=== PATIENT | female | born 1995 | race Caucasian/White ===

== ENCOUNTER 2023-05-09 11:00 | Outpatient (OUT) | payer OTHER, SELFPAY ==
--- NOTE | 2023-05-09 11:03 | US_ITS ---
The [address] [address] Patient Name: DARLEEN-------- Maggi HINTON MRN: [id number] date: 1995 Sex: F Assigned Patient Location: US Current Patient Location: US Accession/Order Number: [id number] Exam Date: 05/09/2023 11:20 Report Date: 05/09/2023 16:46 At the request of: ARCELIA GAMEZ Procedure: US pelvis w/ transvaginal EXAM: US pelvis w/ transvaginal INDICATION: Pelvic Pain In Female R10.2, Menorrhagia N92.0 COMPARISON: Pelvic ultrasound 05/15/2016 TECHNIQUE: Transabdominal and transvaginal ultrasound with grayscale, color Doppler and spectral Doppler imaging. FINDINGS: Uterus:9.4 x 5.6 x 4.3 cm Grossly normal myometrial echotexture. Endometrium:17.9 mm Right ovary: 3.0 x 2.1 x 1.7 cm. Left ovary: 3.2 x 2.4 x 2.6cm. Normal color Doppler and spectral tracing to both ovaries No free fluid in the cul-de-sac. US/US pelvis w/ transvaginal IMPRESSION: 1. Thickened endometrium. No sonographic findings of focal endometrial mass. Electronically authenticated by: CHUCKIE HERNANDEZ Date: 05/09/2023 16:46
== END 2023-05-09 11:01 | disposition home or self-care (01) ==
LOC: US 11:00
PROVIDERS: PCP Internal Medicine; Visit Provider Obstetrics & Gynecology
DX: R10.9 Unspecified abdominal pain (principal); N92.0 Excessive and frequent menstruation with regular cycle; R93.89 Abnormal findings on diagnostic imaging of other specified body structures
CPT/HCPCS: 76830; 76856

== ENCOUNTER 2023-05-23 11:10 | Outpatient (OUT) | payer OTHER, SELFPAY ==
--- NOTE | 2023-05-23 11:43 | ECG_ITS ---
[facility] Test Date: 2023-05-23 Pat Name: DARLEEN HINTON Department: Room: - Gender: Female Car [employer]: : 1995 Requested By: ARCELIA GAMEZ Order Number: [id number] Reading MD: NORM ORTIZ Measurements Intervals [place] Rate: 61 P: 11 DC: 161 QRS: 38 QRSD: 85 T: 20 QT: 391 QTc: 395 Interpretive Statements SINUS RHYTHM No previous ECG available for comparison Electronically Signed On 05-24-2023 7:02:55 EST by NORM ORTIZ
== END 2023-05-23 11:11 | disposition home or self-care (01) ==
PROVIDERS: PCP Internal Medicine; Visit Provider Obstetrics & Gynecology
DX: Z01.810 Encounter for preprocedural cardiovascular examination (principal); N92.0 Excessive and frequent menstruation with regular cycle; N93.9 Abnormal uterine and vaginal bleeding, unspecified; R10.2 Pelvic and perineal pain
CPT/HCPCS: 93005

== ENCOUNTER 2023-05-24 06:18 | Day surgery (SDC) | payer OTHER, SELFPAY ==
[2023-05-23 11:45] VITALS: BP 117/80; PULSE 78; RESP 18; TEMP 36.3; O2SAT 99; BMI 35.6
[2023-05-24 06:28] LABS: Basophils Percent Auto 0.6 % (0.2-2.0); Eosinophils Absolute Auto 0.1 10^3/uL (0.0-0.7); Eosinophils Percent Auto 1.2 % (0.9-7.0); Hemoglobin 12.8 g/dL (12.0-16.0); Lymphocytes Absolute Auto 2.7 10^3/uL (1.2-3.8); Lymphocytes Percent Auto 41.3 % (20.5-60.0); Mean Corpuscular HGB Conc 32.8 g/dL (29.9-35.2); Mean Corpuscular Hemoglobin 28.8 pg (26.7-34.0); Mean Corpuscular Volume 87.8 fL (81.0-99.0); Mean Platelet Volume 10.7 fL (9.5-13.5); Monocytes Absolute Auto 0.5 10^3/uL (0.3-0.8); Monocytes Percent Auto 8.2 % (1.7-12.0); Neutrophils Absolute Auto 3.1 10^3/uL (1.4-6.5); Neutrophils Percent Auto 48.7 % (43.0-75.0); Platelet Count 287 10^3/uL (150-450); Red Blood Count 4.44 10^6/uL (4.20-5.40); Red Cell Distribution Width 12.1 % (11.0-15.0); White Blood Count 6.5 10^3/uL (4.0-11.0)
[2023-05-24 06:43] VITALS: BP 125/77; PULSE 72; RESP 16; TEMP 36.2; O2SAT 98
[2023-05-24 06:48] LABS: Glucometer 105 mg/dL (74-106)
[2023-05-24 06:51] LABS: HCG Quantitative <1 mIU/mL
[2023-05-24] MEDS: LACTATED RINGER'S SOLUTION 1,000 ML 50 ML IV (06:54)
--- NOTE | 2023-05-24 08:07 | PM.ONB ---
Brief Operative Note Date of procedure: 05/24/23 Pre-op diagnosis: menorrhagia Post-op diagnosis: same as pre-op Procedure: NAME OF PROCEDURE: [ ] Liudmila endometrial ablation with hysteroscopy. PROCEDURE: The patient was taken back to the OR where she was prepped and draped in the normal sterile fashion after being placed in the dorsal lithotomy position, after being placed under general anesthesia without difficulty.? A weighted speculum was placed into the vagina. The anterior lip was grasped with a single tooth tenaculum. The patient was then sounded to approximated 8cm. The patient?s cervix was gently dilated using hegardilators. The hysteroscope was passed through the cervix into the uterus where both ostia were seen. No gross evidence of polyps, fibroids or malignancy. The cervical length was noted to be 4 cm. The total cavity length is 4cm.? The Liudmila ablation apparatus was set to approximately 4cm in length. This was placed through the cervix and into the uterus. After the seal was tested, at that time the total ablation of 120 seconds was performed with the Liudmila withoutdifficulty. All instruments were removed from the vagina. Excellent hemostasis noted.? Sponge and lap count correct times 2.? Patient taken to recovery in stable condition. Anesthesia: GETA Surgeon: Phill Mitchell Estimated blood loss (mL): 5 Pathology: none sent Condition: stable Disposition: PACU
[2023-05-24 08:15] VITALS: BP 114/65; PULSE 66; RESP 16; TEMP 36.1; O2SAT 98
[2023-05-24 08:30] VITALS: BP 110/62; PULSE 61; RESP 16; O2SAT 100
[2023-05-24 08:45] VITALS: BP 117/75; PULSE 64; RESP 14; O2SAT 98
[2023-05-24 09:10] VITALS: BP 118/73; PULSE 62; RESP 16; O2SAT 96
== END 2023-05-24 09:10 | disposition home or self-care (01) ==
PROVIDERS: PCP Internal Medicine; Visit Provider Obstetrics & Gynecology
PROC: (CPT 58563; principal; 2023-05-24 07:30)
DX: N92.0 Excessive and frequent menstruation with regular cycle (principal); N93.9 Abnormal uterine and vaginal bleeding, unspecified; R10.2 Pelvic and perineal pain; Z79.84 Long term (current) use of oral hypoglycemic drugs; F17.210 Nicotine dependence, cigarettes, uncomplicated; E66.9 Obesity, unspecified; Z68.33 Body mass index [BMI] 33.0-33.9, adult
CPT/HCPCS: 58563; 36415; 82948; 84702; 85025; J2704

== ENCOUNTER 2024-04-06 21:59 | Outpatient (REF) | payer OTHER, SELFPAY ==
--- OUTSIDE RECORDS SUMMARY | 2024-04-06 22:03 | XMS_ITS | CCD ---
Author Organization [facility] Care Team Providers Care Catalyst Manufacturing Operator Name Role Phone KELLEY EDUARDO Attending Unavailable KARASIK, KELLEY Consulting Unavailable REQUEST, NONE LISTED Primary Care Unavaila ble KARASIK, KELLEY Admitting Unavailable KARASIK, KELLEY Attending Unavailable KARASIK, KELLEY Consulting Unavailable REQUEST, NONE LISTED Primary Care Unavaila ble KARASIK, KELLEY Admitting Unavailable KARASIK, KELLEY Attending Unavailable REQUEST, NONE LISTED Primary Care Unavaila ble KARASIK, KELLEY Consulting Unavailable KARASIK, KELLEY Admitting Unavailable KARASIK, KELLEY Attending Unavailable REQUEST, NONE LISTED Primary Care Unavaila ble KARASIK, KELLEY Consulting Unavailable KARASIK, KELLEY Admitting Unavailable KARASIK, KELLEY Procedure Practitioner Unavaila ble HOY ., DR BERRIOS Primary Care Unavailable KARASIK, KELLEY Attending Unavailable KARASIK, KELLEY Admitting Unavailable FAWWAYue, H Primary Care Unavailable KARASIK, KELLEY Attending Unavailable KARASIK, KELLEY Consulting Unavailable KARASIK, KELLEY Admitting Unavailable OK II, UZAIR Consulting Unavailable FILUTZE, MARCO Consulting Unavailable REQUEST, NONE LISTED Primary Care Unavaila ble KARASIK, KELLEY Attending Unavailable KARASIK, KELLEY Admitting Unavailable AICHHOLZ, VENEER CLIPPER HELPER MATILDE Admitting Unavailable REQUEST, NONE LISTED Primary Care Unavaila ble AICHHOLZ, VENEER CLIPPER HELPER MATILDE Attending Unavailable AICHHOLZ, VENEER CLIPPER HELPER MATILDE Consulting Unavailable KARASIK, KELLEY Attending Unavailable KARASIK, KELLEY Consulting Unavailable REQUEST, NONE LISTED Primary Care Unavaila ble KARASIK, KELLEY Admitting Unavailable NARENDRA JONES Attending Unavailable FAWSHAIKH COOL Attending Unavailable FAWSHAIKH COOL Attending Unavailable NARENDRA JONES Attending Unavailable OREN VALDEZ Attending DALJIT Maravilla Attending OREN Rosales Attending Unavailable Problems Active Problems Problem Classification Problem Date Documented Date Episodic/Chronic Abdominal pain (1 source) Pelvic and perineal pain; Translations: [PELVIC AND PERINEAL PAIN] Onset: 10-02-2022 Episodic Contraceptive and procreative management (4 sources) Encounter for sterilization; Translations: [ENCOUNTER FOR STERILIZATION] Onset: 09-24-2022 Episodic Menstrual disorders (1 source) Excessive and frequent menstruation with regular cycle; Translations: [EXCESS FREQ MENSTRUATION W/REG CYCL] Onset: 10-02-2022 Chronic Other nutritional; endocrine; and metabolic disorders (1 source) Obesity, unspecified; Translations: [OBESITY UNSPECIFIED] Onset: 10-02-2022 Chronic Other nutritional; endocrine; and metabolic disorders (1 source) Body mass index (BMI) 37.0-37.9, adult; Translations: [BODY MASS INDEX BMI 37.0-37.9 ADULT] Onset: 10-02-2022 Chronic Residual codes; unclassified (1 source) Family history of other diseases of the genitourinary system; Translations: [FAM HX OTH DZ GENITOURINARY SYSTEM] Onset: 10-02-2022 Episodic Screening and history of mental health and substance abuse codes (1 source) Personal history of nicotine dependence; Translations: [PERSONAL HISTORY OF NICOTINE DEPEND] Onset: 10-02-2022 Episodic Unclassified (1 source) ENDOMETRIO POST CUL DE SAC UNS DPTH; Translations: [ENDOMETRIO POST CUL DE SAC UNS DPTH] Onset: 10-02-2022 Unclassified (3 sources) CONTACT W/AND (SUSP) EXPOS COVID-19; Translations: [CONTACT W/AND (SUSP) EXPOS COVID-19] Onset: 01-16-2022 Viral infection (1 source) COVID-19; Translations: [COVID-19] Onset: 06-02-2022 Past or Other Problems Problem Classification Problem Date Documented Date Episodic/Chronic Diabetes mellitus without complication (4 sources) Other abnormal glucose; Translations: [OTHER ABNORMAL GLUCOSE] Onset: 11-04-2021 Episodic Immunizations and screening for infectious disease (1 source) Encounter for screening for infections with a predominantly sexual mode of transmission; Translations: [ENC SCREEN INFECTIONS SEXL TRANSMS] Onset: 12-21-2021 Episodic Other female genital disorders (4 sources) Other specified noninflammatory disorders of vagina; Translations: [OTH SPEC NONINFLAMMATORY D/O VAGINA] Onset: 05-09-2022 Episodic Other and delivery including normal (8 sources) Encounter for care and examination of lactating mother; Translations: [Encounter for supervision of normal , unspecified, third trimester] Onset: 01-12-2022 Episodic Other screening for suspected conditions (not mental disorders or infectious disease) (9 sources) Encounter for screening for malignant neoplasm of cervix; Translations: [Encounter for screening for Streptococcus B] Onset: 10-31-2021 Episodic Residual codes; unclassified (1 source) 39 weeks gestation of ; Translations: [39 WEEKS GESTATION OF ] Onset: 01-16-2022 Episodic Unclassified (1 source) CONTACT W/AND (SUSP) EXPOS COVID-19; Translations: [CONTACT W/AND (SUSP) EXPOS COVID-19] Onset: 05-29-2022 Results Test Name Value Interpretation Reference Range Facility URon 09-24-2022 , QUAL Negative Normal NEGATIVE [facility] Comment on above: Performed By: #### P REGU #### [facility] [address] [place] [address] Dr. Rodrigo Mendez Covid-19 PCR ([facility])on 05-09 SARS-CoV-2 (COVID-19) RNA SIRI+probe Ql (Unsp spec) Detected Critically abnormal NOT DETECTED [facility] Comment on above: Result Comment: This test is not yet approved or cleared by the [place] FDA. When there are no FDA-approved or cleared tests available, and other criteria are met, FDA can make tests available under an emergency access mechanism called an Emergency Use Authorization (EUA). The EUA for this test is supported by the Graduate Teaching Assistant of Health and Human Service's declaration that circumstances exist to justify the emergency use of in vitro diagnostics for the detection and/or diagnosis of the virus that causes COVID-19. This EUA will remain in effect for the duration of the COVID-19 declaration justifying emergency of IVDs, unless it is terminated or revoked by the FDA (after which the test may no longer be used). Performed By: #### G [id number] #### [facility] [address] [place] [address] Dr. Rodrigo Mendez PAP ACOG PANEL 2: 21 to 29on 05-17-2022 . . Normal [facility] Comment on above: Performed By: #### [id number] #### [facility] [address] [place] [address] Dr. Rodrigo Mendez Age Gdln ACOG Testing 23- [facility] Comment on above: Performed By: #### [id number] #### [facility] [address] [place] [address] Dr. Rodrigo Mendez DIAGNOSIS: Comment [facility] Comment on above: Result Comment: NEGA TIVE FOR INTRAEPITHELIAL LESION OR MALIGNANCY. Performed By: #### [id number] #### [facility] [address] [place] [address] Dr. Rodrigo Mendez Methodology: Comment [facility] Comment on above: Result Comment: This liquid based ThinPrep(R) pap test was screened with the use of an image guided system. Performed By: #### [id number] #### [facility] [address] [place] [address] Dr. Rodrigo Mendez Note: Comment [facility] Comment on above: Result Comment: The Pap smear is a screening test designed to aid in the detection of premalignant and malignant conditions of the uterine cervix. It is not a diagnostic procedure and should not be used as the sole means of detecting cervical cancer. Both false-positive and false-negative reports do occur. . Performed By: #### [id number] #### [facility] [address] [place] [address] Dr. Rodrigo Mendez Performed by: Comment Normal [facility] Comment on above: Result Comment: Debra Montelongo, Switchboard Installer (ASCP) Performed By: #### [id number] #### [facility] [address] [place] [address] Dr. Rodrigo Mendez Reflex Criteria: Comment [facility] Comment on above: Result Comment: The HPV DNA reflex criteria were not met with this specimen result therefore, no HPV testing was performed. . Performed By: #### [id number] #### [facility] [address] [place] [address] Dr. Rodrigo Mendez Specimen adequacy: Comment Normal [facility] Comment on above: Result Comment: Sati sfactory for evaluation. Endocervical and/or squamous metaplastic cells (endocervical component) are present. Performed By: #### [id number] #### [facility] [address] [place] [address] Dr. Rodrigo Mendez VAGINITIS/VAGINOSIS DNA PROB Hussain 05-12-2022 Esther species Negative Normal Negative [facility] Comment on above: Performed By: #### V AGINT #### [facility] [address] [place] [address] Dr. Rodrigo Mendez Gardnerella vaginalis Negative Normal Negative [facility] Comment on above: Performed By: #### V AGINT #### [facility] [address] [place] [address] Dr. Rodrigo Mendez Trichomonas vaginalis Negative Normal Negative [facility] Comment on above: Performed By: #### V AGINT #### [facility] [address] [place] [address] Dr. Rodrigo Mendez CBC AUTO DIFFon 01-13-2022 BASO # 0.0 103/ul Normal 0.0-0.[address] [facility] Comment on above: Performed By: #### C BC #### [facility] [address] [place] [address] Dr. Rodrigo Mendez Basophils/100 WBC (Bld) 0.4 % Normal 0.2-2.[address] [facility] Comment on above: Performed By: #### C BC #### [facility] [address] [place] [address] Dr. Rodrigo Mendez EO # 0.1 103/ul Normal 0.0-0.[address] [facility] Comment on above: Performed By: #### C BC #### [facility] [address] [place] [address] Dr. Rodrigo Mendez Eosinophils/100 WBC (Bld) 1.5 % Normal 0.9-7.[address] [facility] Comment on above: Performed By: #### C BC #### [facility] [address] [place] [address] Dr. Rodrigo Mendez Erythrocyte distribution width (RBC) [Ratio] 13.6 % Normal 11.0-15.[address] [facility] Comment on above: Performed By: #### C BC #### [facility] [address] [place] [address] Dr. Rodrigo Mendez Hematocrit (Bld) [Volume fraction] 33.6 % Critically low 36.0-48.[address] [facility] Comment on above: Performed By: #### C BC #### [facility] [address] [place] [address] Dr. Rodrigo Mendez Hemoglobin (Bld) [Mass/Vol] 11.0 g/dL Critically low 12.0-16.[address] [facility] Comment on above: Performed By: #### C BC #### [facility] [address] [place] [address] Dr. Rodrigo Mendez IG # 0.02 10e3/ul Normal 0.00-0.[address] [facility] Comment on above: Performed By: #### C BC #### [facility] [address] [place] [address] Dr. Rodrigo Mendez IG % 0.2 % Normal 0.0-0.[address] [facility] Comment on above: Performed By: #### C BC #### [facility] [address] [place] [address] Dr. Rodrigo Mendez LYMPH # 2.0 103/ul Normal 1.2-3.[address] [facility] Comment on above: Performed By: #### C BC #### [facility] [address] [place] [address] Dr. Rodrigo Mendez Lymphocytes/100 WBC (Bld) 21.5 % Normal 20.5-60.[address] [facility] Comment on above: Performed By: #### C BC #### [facility] [address] [place] [address] Dr. Rodrigo Mendez MANUAL DIFF REQ NO Normal [facility] Comment on above: Performed By: #### C BC #### [facility] [address] [place] [address] Dr. Rodrigo Mendez MCH (RBC) [Entitic mass] 28.9 pg Normal 26.7-34.[address] [facility] Comment on above: Performed By: #### C BC #### [facility] [address] [place] [address] Dr. Rodrigo Mendez MCHC (RBC) [Mass/Vol] 32.7 g/dL Normal 29.9-35.[address] [facility] Comment on above: Performed By: #### C BC #### [facility] [address] [place] [address] Dr. Rodrigo Mendez MCV (RBC) [Entitic vol] 88.4 fL Normal 81.0-99.[address] [facility] Comment on above: Performed By: #### C BC #### [facility] [address] [place] [address] Dr. Rodrigo Mendez MONO # 0.8 103/ul Normal 0.3-0.[address] [facility] Comment on above: Performed By: #### C BC #### [facility] [address] [place] [address] Dr. Rodrigo Mendez Monocytes/100 WBC (Bld) 8.4 % Normal 1.7-12.[address] [facility] Comment on above: Performed By: #### C BC #### [facility] [address] [place] [address] Dr. Rodrigo eMndez NEUT # 6.2 103/ul Normal 1.4-6.[address] [facility] Comment on above: Performed By: #### C BC #### [facility] [address] [place] [address] Dr. Rodrigo Mendez Neutrophils/100 WBC (Bld) 68.0 % Normal 43.0-75.[address] [facility] Comment on above: Performed By: #### C BC #### [facility] [address] [place] [address] Dr. Rodrigo Mendez Platelet mean volume (Bld) [Entitic vol] 12.6 fL Normal 9.5-13.[address] [facility] Comment on above: Performed By: #### C BC #### [facility] [address] [address] [address] Rodrigo Mendez PLT 142 103/ul Critically low 150-450 [facility] Comment on above: Performed By: #### C BC #### [facility] [address] [place] [address] Dr. Rodrigo Mendez RBC 3.80 106/ul Critically low 4.20-5.40 [facility] Comment on above: Performed By: #### C BC #### [facility] [address] [place] [address] Dr. Rodrigo Mendez WBC 9.1 103/ul Normal 4.0-11.[address] [facility] Comment on above: Performed By: #### C BC #### [facility] [address] [place] [address] Dr. Rodrigo Mendez CBC AUTO DIFFon 01-12-2022 BASO # 0.0 103/ul Normal 0.0-0.[address] [facility] Comment on above: Performed By: #### G LU1HR #### [facility] [address] [place] [address] Dr. Rodrigo Mendez Basophils/100 WBC (Bld) 0.2 % Normal 0.2-2.[address] [facility] Comment on above: Performed By: #### G LU1HR #### [facility] [address] [place] [address] Dr. Rodrigo Mendez EO # 0.1 103/ul Normal 0.0-0.[address] [facility] Comment on above: Performed By: #### G LU1HR #### [facility] [address] [place] [address] Dr. Rodrigo Mendez Eosinophils/100 WBC (Bld) 0.5 % Critically low 0.9-7.[address] [facility] Comment on above: Performed By: #### G LU1HR #### [facility] [address] [place] [address] Dr. Rodrigo Mendez Erythrocyte distribution width (RBC) [Ratio] 13.2 % Normal 11.0-15.[address] [facility] Comment on above: Performed By: #### G LU1HR #### [facility] [address] [place] [address] Dr. Rodrigo Mendez Hematocrit (Bld) [Volume fraction] 34.6 % Critically low 36.0-48.[address] [facility] Comment on above: Performed By: #### G LU1HR #### [facility] [address] [place] [address] Dr. Rodrigo Mendez Hemoglobin (Bld) [Mass/Vol] 11.6 g/dL Critically low 12.0-16.[address] [facility] Comment on above: Performed By: #### G LU1HR #### [facility] [address] [place] [address] Dr. Rodrigo Mendez IG # 0.03 10e3/ul Normal 0.00-0.[address] [facility] Comment on above: Performed By: #### G LU1HR #### [facility] [address] [place] [address] Dr. Rodrigo Mendez IG % 0.3 % Normal 0.0-0.[address] [facility] Comment on above: Performed By: #### G LU1HR #### [facility] [address] [place] [address] Dr. Rodrigo Mendez LYMPH # 2.4 103/ul Normal 1.2-3.[address] [facility] Comment on above: Performed By: #### G LU1HR #### [facility] [address] [place] [address] Dr. Rodrigo Mendez Lymphocytes/100 WBC (Bld) 21.0 % Normal 20.5-60.[address] [facility] Comment on above: Performed By: #### G LU1HR #### [facility] [address] [place] [address] Dr. Rodrigo Mendez MANUAL DIFF REQ NO Normal [facility] Comment on above: Performed By: #### G LU1HR #### [facility] [address] [place] [address] Dr. Rodrigo Mendez MCH (RBC) [Entitic mass] 28.6 pg Normal 26.7-34.[address] [facility] Comment on above: Performed By: #### G LU1HR #### [facility] [address] [address] [address] Rodrigo Mendez MCHC (RBC) [Mass/Vol] 33.5 g/dL Normal 29.9-35.[address] [facility] Comment on above: Performed By: #### G LU1HR #### [facility] [address] [place] [address] Dr. Rodrigo Mendez MCV (RBC) [Entitic vol] 85.4 fL Normal 81.0-99.[address] [facility] Comment on above: Performed By: #### G LU1HR #### [facility] [address] [place] [address] Dr. Rodrigo Mendez MONO # 0.8 103/ul Normal 0.3-0.[address] [facility] Comment on above: Performed By: #### G LU1HR #### [facility] [address] [place] [address] Dr. Rodrigo Mendez Monocytes/100 WBC (Bld) 7.2 % Normal 1.7-12.[address] [facility] Comment on above: Performed By: #### G LU1HR #### [facility] [address] [place] [address] Dr. Rodrigo Mendez NEUT # 7.9 103/ul Critically high 1.4-6.5 [facility] Comment on above: Performed By: #### G LU1HR #### [facility] [address] [place] [address] Dr. Rodrigo Mendez Neutrophils/100 WBC (Bld) 70.8 % Normal 43.0-75.[address] [facility] Comment on above: Performed By: #### G LU1HR #### [facility] [address] [place] [address] Dr. Rodrigo Mendez Platelet mean volume (Bld) [Entitic vol] 12.4 fL Normal 9.5-13.[address] [facility] Comment on above: Performed By: #### G LU1HR #### [facility] [address] [place] [address] Dr. Rodrigo Mendez PLT 175 103/ul Normal 150-450 [facility] Comment on above: Performed By: #### G LU1HR #### [facility] [address] [address] [address] Rodrigo Mendez RBC 4.05 106/ul Critically low 4.20-5.40 [facility] Comment on above: Performed By: #### G LU1HR #### [facility] [address] [address] [address] Rodrigo Mendez WBC 11.2 103/ul Critically high 4.0-11.0 [facility] Comment on above: Performed By: #### G LU1HR #### [facility] [address] [address] [address] Rodrigo Mendez Covid-19 PCR (CVDTB)on SARS-CoV-2 (COVID-19) RNA SIRI+probe Ql (Unsp spec) Not detected Normal NOT DETECTED [facility] Comment on above: Result Comment: When diagnostic testing is negative, the possibility of a false negative should be considered in the context of a patient's recent exposures and the presence of clinical signs and symptoms consistent with SARS-CoV-2. This test is not yet approved or cleared by the [place] FDA. When there are no FDA-approved or cleared tests available, and other criteria are met, FDA can make tests available under an emergency access mechanism called an Emergency Use Authorization (EUA). The EUA for this test is supported by the [place] of Health and Human Service's declaration that circumstances exist to justify the emergency use of in vitro diagnostics for the detection and/or diagnosis of the virus that causes COVID-19. This EUA will remain in effect for the duration of the COVID-19 declaration justifying emergency of IVDs, unless it is terminated or revoked by the FDA (after which the test may no longer be used). Performed By: #### C VDTBH #### [facility] [address] [place] [address] Dr. Rodrigo Mendez TYPE AND SCREENon 01-12-2022 TYPE AND SCREEN Negative Normal [facility] Comment on above: Performed By: #### G LU1HR #### [facility] [address] [place] [address] Dr. Rodrigo Mendez DRUG SCREEN RAPID (URINE)on 01-11-2022 AMP Negative Normal NEGATIVE [facility] Comment on above: Performed By: #### D RUGRPD #### [facility] [address] [place] [address] Dr. Rodrigo Mendez BAR Negative Normal NEGATIVE [facility] Comment on above: Performed By: #### D RUGRPD #### [facility] [address] [place] [address] Dr. Rodrigo Mendez BUP Negative Normal NEGATIVE [facility] Comment on above: Performed By: #### D RUGRPD #### [facility] [address] [place] [address] Dr. Rodrigo Mendez BZO Negative Normal NEGATIVE [facility] Comment on above: Performed By: #### D RUGRPD #### [facility] [address] [place] [address] Dr. Rodrigo Mendez RACHEL Negative Normal NEGATIVE [facility] Comment on above: Performed By: #### D RUGRPD #### [facility] [address] [place] [address] Dr. Rodrigo Mendez CUT-OFFS SEE BELOW Normal [facility] Comment on above: Result Comment: AMP (Amphetamine): 500ng/mL, BAR (Barbituates): 200 ng/mL, BZO (Benzodiazepines): 150 ng/mL, BUP (Buprenorphine): 10 ng/mL, RACHEL (Cocaine): 150 ng/mL, mAMP (Methamphetamine): 500 ng/mL, MTD (Methadone): 200 ng/mL, OPI (Opiates): 100 ng/mL, OXY (Oxycodone): 100 ng/mL, PCP (Phencyclidine): 25 ng/mL, PPX (Propoxyphene): 300 ng/mL, THC (Cannabinoids): 50 ng/mL, TCA (Trycyclic Antidepressants): 300 ng/mL Performed By: #### D RUGRPD #### [facility] [address] [place] [address] Dr. Rodrigo Mendez DRUG CUT HEADER DRUG CLASS TEST SYSTEM CUT-OFF CONCENTRATIONS ARE FOLLOWS: Normal [facility] Comment on above: Performed By: #### D RUGRPD #### [facility] [address] [place] [address] Dr. Rodrigo Mendez mAMP Negative Normal NEGATIVE [facility] Comment on above: Performed By: #### D RUGRPD #### [facility] [address] [place] [address] [address] Rodrigo Mendez MTD Negative Normal NEGATIVE [facility] Comment on above: Performed By: #### D RUGRPD #### [facility] [address] [place] [address] [address] Rodrigo Mendez OPI Negative Normal NEGATIVE [facility] Comment on above: Performed By: #### D RUGRPD #### [facility] [address] [place] [address] Dr. Rodrigo Mendez OXY Negative Normal NEGATIVE [facility] Comment on above: Performed By: #### D RUGRPD #### [facility] [address] [place] [address] Dr. Rodrigo Mendez PCP Negative Normal NEGATIVE [facility] Comment on above: Performed By: #### D RUGRPD #### [facility] [address] [place] [address] Dr. Rodrigo Mendez PPX Negative Normal NEGATIVE [facility] Comment on above: Performed By: #### D RUGRPD #### [facility] [address] [place] [address] Dr. Rodrigo Mendez TCA Negative Normal NEGATIVE [facility] Comment on above: Performed By: #### D RUGRPD #### [facility] [address] [place] [address] Dr. Rodrigo Mendez THC Negative Normal NEGATIVE [facility] Comment on above: Performed By: #### D RUGRPD #### [facility] [address] [place] [address] Dr. Rodrigo Mendez CHLAMYDIA/GONOCOCCUS SIRI (SW AB/URINE/PAPon 12-23-2021 Chlamydia trachomatis, SIRI Negative Normal Negative [facility] Comment on above: Performed By: #### C T/NGNA #### [facility] [address] [place] [address] Dr. Rodrigo Mendez Neisseria gonorrhoeae, SIRI Negative Normal Negative [facility] Comment on above: Performed By: #### C T/NGNA #### [facility] [address] [place] [address] Dr. Rodrigo Mendez GROUP B STREP CULTUREon 12-06 S. agalactiae Ag Ql (Unsp spec) Culture Observations: NEGATIVE FOR GROUP B STREPTOCOCCUS. Normal [facility] Comment on above: Performed By: #### G LU1HR #### [facility] [address] [place] [address] Dr. Rodrigo Mendez GTT 3 HR PREGon 11-04-2021 Glucose [Mass/Vol] 86 mg/dL Normal 74-106 [facility] Comment on above: Performed By: #### G TT3P #### [facility] [address] [place] [address] Dr. Rodrigo Mendez Glucose [Mass/Vol] 162 mg/dL Normal [facility] Comment on above: Performed By: #### G TT3P #### [facility] [address] [place] [address] Dr. Rodrigo Mendez Glucose [Mass/Vol] 148 mg/dL Normal [facility] Comment on above: Performed By: #### G TT3P #### [facility] [address] [place] [address] Dr. Rodrigo Mendez Glucose [Mass/Vol] 130 mg/dL Normal [facility] Comment on above: Performed By: #### G TT3P #### [facility] [address] [place] [address] Dr. Rodrigo Mendez GLUCOSE - 1HRon 10-31-2021 Glucose [Mass/Vol] 144 mg/dL Critically high 74-106 [facility] Comment on above: Performed By: #### G LU1HR #### [facility] [address] [place] [address] Dr. Rodrigo Mendez HEMOGRAM AND PLATELon 2021 Hematocrit (Bld) [Volume fraction] 36.4 % Normal 36.0-48.[address] [facility] Comment on above: Performed By: #### H H #### [facility] [address] [place] [address] [address] Rodrigo Mendez Hemoglobin (Bld) [Mass/Vol] 11.8 g/dL Critically low 12.0-16.[address] [facility] Comment on above: Performed By: #### H H #### [facility] [address] [place] [address] [address] Rodrigo Mendez MCH (RBC) [Entitic mass] 29.1 pg Normal 26.7-34.[address] [facility] Comment on above: Performed By: #### H H #### [facility] [address] [place] [address] [address] Rodrigo Mendez MCHC (RBC) [Mass/Vol] 32.4 g/dL Normal 29.9-35.[address] [facility] Comment on above: Performed By: #### H H #### [facility] [address] [place] [address] Dr. Rodrigo Mendez MCV (RBC) [Entitic vol] 89.9 fL Normal 81.0-99.[address] [facility] Comment on above: Performed By: #### H H #### [facility] [address] [place] [address] [address] Rodrigo Mendez PLT 205 103/ul Normal 150-[address] [facility] Comment on above: Performed By: #### H H #### [facility] [address] [place] [address] Dr. Rodrigo Mendez RBC 4.05 106/ul Critically low 4.20-5.40 [facility] Comment on above: Performed By: #### H H #### [facility] [address] [place] [address] Dr. Rodrigo Mendez WBC 10.3 103/ul Normal 4.0-11.[address] [facility] Comment on above: Performed By: #### H H #### [facility] [address] [place] [address] Dr. Rodrigo Mendez Encounters Encounter Date Encounter Type Care Provider Facility Start: 03-19-2024 End: 03-19-2024 ambulatory OREN VALDEZ Not Available Start: 03-16-2024 End: 03-16-2024 ambulatory DALJIT BRADENPATRICK Not Available Start: 02-20-2024 End: 02-20-2024 ambulatory ORNE VALDEZ Not Available Start: 12-24-2023 End: 12-24-2023 ambulatory SHAIKH CRISTINOJIMBO Not Available Start: 10-30-2023 End: 10-30-2023 ambulatory SHAIKH CRISTINOJIMBO Not Available Start: 07-18-2023 End: 07-18-2023 ambulatory NARENDRA JONES Not Available Start: 06-13-2023 End: 06-13-2023 ambulatory NARENDRA JORGENSENEY Not Available Start: 09-24-2022 End: 09-24-2022 ambulatory SHAIKH Anjali GREGGJIMBO Facility:[facility] Start: 09-13-2022 Encounter for other preprocedural examination KELLEY EDUARDO [facility] Start: 09-11-2022 End: 09-12-[address] YASH MONTGOMERY . Facility:[facility] Start: 09-11-2022 End: 09-12-2022 Encounter for other preprocedural examination DR YASH MONTGOMERY . Facility:[facility] Start: 05-29-2022 End: 05-29-2022 ambulatory VENEER CLIPPER HELPER MATILDE MELINA Facility:[facility] Start: 05-09-2022 End: 05-09-2022 ambulatory KELLEY KARRADHA Facility:[facility] Start: 03-16-2022 End: 04-02-[address] GOLDBERG LISTED REQUEST Facility:[facility] Start: 01-12-2022 End: 01-13-2022 Evaluation and management of inpatient KELLEY EDUARDO Facility:[facility] Start: 12-20-2021 End: 12-20-2021 ambulatory KELLEY EDUARDO Facility:[facility] Start: 11-04-2021 End: 11-05-2021 ambulatory KELLEY EDUARDO Facility:[facility] Start: 10-31-2021 End: 11-01-2021 ambulatory KELLEY EDUARDO Facility:[facility] Procedures Date Procedure Procedure Detail Performing Clinician Start: 01-12-2022 Delivery of Products of Conception, External Approach KELLEY EDUARDO Start: 01-12-2022 Drainage of Amniotic Fluid, Therapeutic from Products of Conception, Via Natural or Artificial Opening KELLEY EDUARDO Payers Date Payer Category Payer Unknown [id number] 2.16.84 [id number] 1997 Unknown [id number] 2.16.84 0.1.449424.3.579.2.593 1997 Unknown [id number] 2.16.84 0.1.526163.3.579.2.593 1997 Unknown [id number] 2.16.84 0.1.058815.3.579.2.593 1997 Unknown [id number] 2.16.84 0.1.588739.3.579.2.593 1997 Unknown [id number] 2.16.84 0.1.150717.3.579.2.593 1997 Unknown [id number] 2.16.84 0.1.275987.3.579.2.593 1997 Unknown [id number] 2.16.84 0.1.265863.3.579.2.593 1997 Unknown [id number] 2.16.84 0.1.354993.3.579.2.593 1997 Unknown [id number] 2.16.84 0.1.794522.3.579.2.1259 1997 Unknown [id number] 2.16.84 0.1.665915.3.579.2.1259 1997 Unknown [id number] 2.16.84 0.1.302524.3.579.2.1259 1997 Unknown [id number] 2.16.84 0.1.863660.3.579.2.1259 1997 Unknown [id number] 2.16.84 0.1.427352.3.579.2.1259 1997 Unknown [id number] 2.16.84 0.1.400325.3.579.2.1259 1997 Unknown [id number] 2.16.840 .1.397499.3.579.2.1259 1959 Unknown [id number] Summary Purpose Family History No Family History Records FoundNo Family History Records Found Advance Directives No Advanced Directives Records FoundNo Advanced Directives Records Found Additional Source Comments INFORMATION SOURCE (unrecogn ized section and content) DATE CREATED AUTHOR 10/05/2022 [facility] DATE CREATED AUTHOR AUTHOR'S DANNY MATHIS 03/21/2024 [facility] EPIC FOR RECORDS PERTAINING TO PATIENTS WHO ARE OR HAVE BEEN ENROLLED IN A CHEMICAL DEPENDENCY/SUBSTANCEABUSE PROGRAM, SOME INFORMATION MAY BE OMITTED. This clinical summary was aggregated from multiple sources. Caution should be exercised in using it in the provision of clinical care. This summary normalizes information from multiple sources, and as a consequence, information in this document may materially change the coding, format and clinical context of patient data. In addition, data may be omitted in some cases. CLINICAL DECISIONS SHOULD BE BASED ON THE PRIMARY CLINICAL RECORDS. [facility] [employer] [facility]. provides no warranty or guarantee of the accuracy or completeness of information in this document.
== END 2024-04-06 22:00 | disposition home or self-care (01) ==
LOC: LAB 21:59
PROVIDERS: Visit Provider Physician Assistant
DX: N64.4 Mastodynia (principal)
CPT/HCPCS: 87070; 87075

== ENCOUNTER 2024-04-07 16:22 | Outpatient (OUT) | payer OTHER, SELFPAY ==
--- OUTSIDE RECORDS SUMMARY | 2024-04-07 16:37 | XMS_ITS | CCD ---
Author Organization [facility] Care Team Providers Care Luggage Maker Name Role Phone KELLEY EDUARDO Attending Unavailable [...] Attending Unavailable KARASIK, KELLEY Admitting Unavailable AICHHOLZ, GRINDING WHEEL INSPECTOR MATILDE Admitting Unavailable REQUEST, NONE LISTED Primary Care Unavaila ble AICHHOLZ, GRINDING WHEEL INSPECTOR MATILDE Attending Unavailable AICHHOLZ, GRINDING WHEEL INSPECTOR MATILDE Consulting Unavailable KARASIK, KELLEY Attending Unavailable [...] 09-24-2022 , QUAL Negative Normal NEGATIVE [facility] Comment on above: Performed By: #### P REGU #### [facility] [address] [place] [address] Dr. Rodrigo Mendez Covid-19 PCR ([facility])on 05-09 SARS-CoV-2 (COVID-19) RNA SIRI+probe Ql (Unsp spec) Detected Critically abnormal NOT DETECTED [facility] Comment on above: Result Comment: This test is not yet approved or cleared by the [place] FDA. When there are no FDA-approved or cleared tests available, and other criteria are met, FDA can make tests available under an emergency access mechanism called an Emergency Use Authorization (EUA). The EUA for this test is supported by the [place] of Health and Human Service's declaration that [...] used). Performed By: #### G LU1HR #### [facility] [address] [place] [address] Dr. Rodrigo Mendez PAP ACOG PANEL 2: 21 to 29on 05-17-2022 . . Normal [facility] Comment on above: Performed By: #### [id number] #### [facility] [address] [place] [address] Dr. Rodrigo Mendez Age Gdln ACOG Testing 23- [facility] Comment on above: Performed By: #### [id number] #### [facility] [address] [place] [address] Dr. Rodrigo Mendez DIAGNOSIS: Comment [facility] Comment on above: Result Comment: NEGA TIVE FOR INTRAEPITHELIAL LESION OR MALIGNANCY. Performed By: #### [id number] #### [facility] [address] [place] [address] Dr. Rodrigo Mendez Methodology: Comment [facility] Comment on above: Result Comment: This liquid based ThinPrep(R) pap test was screened with the use of an image guided system. Performed By: #### [id number] #### [facility] [address] [place] [address] Dr. Rodrigo Mendez Note: Comment [facility] Comment on above: Result Comment: The Pap smear is a screening test designed to aid in the detection of premalignant and malignant conditions of the uterine cervix. It is not a diagnostic procedure and should not be used as the sole means of detecting cervical cancer. Both false-positive and false-negative reports do occur. . Performed By: #### [id number] #### [facility] [address] [place] [address] Dr. Rodrigo Mendez Performed by: Comment Normal [facility] Comment on above: Result Comment: Debra Montelongo, Medical Administrative Specialist (ASCP) Performed By: #### [id number] #### [facility] [address] [place] [address] Dr. Rodrigo Mendez Reflex Criteria: Comment [facility] Comment on above: Result Comment: The HPV DNA reflex criteria were not met with this specimen result therefore, no HPV testing was performed. . Performed By: #### [id number] #### [facility] [address] [place] [address] Dr. Rodrigo Mendez Specimen adequacy: Comment Normal [facility] Comment on above: Result Comment: Sati sfactory for evaluation. Endocervical and/or squamous metaplastic cells (endocervical component) are present. Performed By: #### [id number] #### [facility] [address] [place] [address] Dr. Rodrigo Mendez VAGINITIS/VAGINOSIS DNA PROB Hussain 05-12-2022 Esther species Negative Normal Negative [facility] Comment on above: Performed By: #### V AGINT #### [facility] [address] [place] [address] Dr. Rodrigo Mendez Gardnerella vaginalis Negative Normal Negative [facility] Comment on above: Performed By: #### V AGINT #### [facility] [address] [place] [address] Dr. Rodrigo Mendez Trichomonas vaginalis Negative Normal Negative [facility] Comment on above: Performed By: #### V AGINT #### [facility] [address] [place] [address] Dr. Rodrigo Mendez CBC AUTO DIFFon 01-13-2022 BASO # 0.0 103/ul Normal 0.0-0.1 [facility] Comment on above: Performed By: #### C BC #### [facility] [address] [place] [address] Dr. Rodrigo Mendez Basophils/100 WBC (Bld) 0.4 % Normal 0.2-2.0 [facility] Comment on above: Performed By: #### C BC #### [facility] [address] [place] [address] Dr. Rodrigo Mendez EO # 0.1 103/ul Normal 0.0-0.7 [facility] Comment on above: Performed By: #### C BC #### [facility] [address] [place] [address] Dr. Rodrigo Mendez Eosinophils/100 WBC (Bld) 1.5 % Normal 0.9-7.0 [facility] Comment on above: Performed By: #### C BC #### [facility] [address] [place] [address] Dr. Rodrigo Mendez Erythrocyte distribution width (RBC) [Ratio] 13.6 % Normal 11.0-15.0 [facility] Comment on above: Performed By: #### C BC #### [facility] [address] [place] [address] Dr. Rodrigo Mendez Hematocrit (Bld) [Volume fraction] 33.6 % Critically low 36.0-48.0 [facility] Comment on above: Performed By: #### C BC #### [facility] [address] [place] [address] Dr. Rodrigo Mendez Hemoglobin (Bld) [Mass/Vol] 11.0 g/dL Critically low 12.0-16.0 [facility] Comment on above: Performed By: #### C BC #### [facility] [address] [place] [address] Dr. Rodrigo Mendez IG # 0.02 10e3/ul Normal 0.00-0.03 [facility] Comment on above: Performed By: #### C BC #### [facility] [address] [place] [address] Dr. Rodrigo Mendez IG % 0.2 % Normal 0.0-0.5 [facility] Comment on above: Performed By: #### C BC #### [facility] [address] [place] [address] Dr. Rodrigo Mendez LYMPH # 2.0 103/ul Normal 1.2-3.8 [facility] Comment on above: Performed By: #### C BC #### [facility] [address] [place] [address] Dr. Rodrigo Mendez Lymphocytes/100 WBC (Bld) 21.5 % Normal 20.5-60.0 [facility] Comment on above: Performed By: #### C BC #### [facility] [address] [place] [address] Dr. Rodrigo Mendez MANUAL DIFF REQ NO Normal [facility] Comment on above: Performed By: #### C BC #### [facility] [address] [place] [address] Dr. Rodrigo Mendez MCH (RBC) [Entitic mass] 28.9 pg Normal 26.7-34.0 [facility] Comment on above: Performed By: #### C BC #### [facility] [address] [place] [address] Dr. Rodrigo Mendez MCHC (RBC) [Mass/Vol] 32.7 g/dL Normal 29.9-35.2 [facility] Comment on above: Performed By: #### C BC #### [facility] [address] [place] [address] Dr. Rodrigo Mendez MCV (RBC) [Entitic vol] 88.4 fL Normal 81.0-99.0 [facility] Comment on above: Performed By: #### C BC #### [facility] [address] [place] [address] Dr. Rodrigo Mendez MONO # 0.8 103/ul Normal 0.3-0.8 [facility] Comment on above: Performed By: #### C BC #### [facility] [address] [place] [address] Dr. Rodrigo Mendez Monocytes/100 WBC (Bld) 8.4 % Normal 1.7-12.0 [facility] Comment on above: Performed By: #### C BC #### [facility] [address] [place] [address] Dr. Rodrigo Mendez NEUT # 6.2 103/ul Normal 1.4-6.5 [facility] Comment on above: Performed By: #### C BC #### [facility] [address] [place] [address] Dr. Rodrigo Mendez Neutrophils/100 WBC (Bld) 68.0 % Normal 43.0-75.0 [facility] Comment on above: Performed By: #### C BC #### [facility] [address] [place] [address] Dr. Rodrigo Mendez Platelet mean volume (Bld) [Entitic vol] 12.6 fL Normal 9.5-13.5 [facility] Comment on above: Performed By: #### C BC #### [facility] [address] [address] [address] Rodrigo Mendez PLT 142 103/ul Critically low 150-450 [facility] Comment on above: Performed By: #### C BC #### [facility] [address] [place] [address] Dr. Rodrigo Mendez RBC 3.80 106/ul Critically low 4.20-5.40 [facility] Comment on above: Performed By: #### C BC #### [facility] [address] [place] [address] Dr. Rodrigo Mendez WBC 9.1 103/ul Normal 4.0-11.0 [facility] Comment on above: Performed By: #### C BC #### [facility] [address] [place] [address] Dr. Rodrigo Mendez CBC AUTO DIFFon 01-12-2022 BASO # 0.0 103/ul Normal 0.0-0.1 [facility] Comment on above: Performed By: #### G LU1HR #### [facility] [address] [place] [address] Dr. Rodrigo Mendez Basophils/100 WBC (Bld) 0.2 % Normal 0.2-2.0 [facility] Comment on above: Performed By: #### G LU1HR #### [facility] [address] [place] [address] Dr. Rodrigo Mendez EO # 0.1 103/ul Normal 0.0-0.7 [facility] Comment on above: Performed By: #### G LU1HR #### [facility] [address] [place] [address] Dr. Rodrigo Mendez Eosinophils/100 WBC (Bld) 0.5 % Critically low 0.9-7.0 [facility] Comment on above: Performed By: #### G LU1HR #### [facility] [address] [place] [address] Dr. Rodrigo Mendez Erythrocyte distribution width (RBC) [Ratio] 13.2 % Normal 11.0-15.0 [facility] Comment on above: Performed By: #### G LU1HR #### [facility] [address] [place] [address] Dr. Rodrigo Mendez Hematocrit (Bld) [Volume fraction] 34.6 % Critically low 36.0-48.0 [facility] Comment on above: Performed By: #### G LU1HR #### [facility] [address] [place] [address] Dr. Rodrigo Mendez Hemoglobin (Bld) [Mass/Vol] 11.6 g/dL Critically low 12.0-16.0 [facility] Comment on above: Performed By: #### G LU1HR #### [facility] [address] [place] [address] Dr. Rodrigo Mendez IG # 0.03 10e3/ul Normal 0.00-0.03 [facility] Comment on above: Performed By: #### G LU1HR #### [facility] [address] [place] [address] Dr. Rodrigo Mendez IG % 0.3 % Normal 0.0-0.5 [facility] Comment on above: Performed By: #### G LU1HR #### [facility] [address] [place] [address] Dr. Rodrigo Mendez LYMPH # 2.4 103/ul Normal 1.2-3.8 [facility] Comment on above: Performed By: #### G LU1HR #### [facility] [address] [place] [address] Dr. Rodrigo Mendez Lymphocytes/100 WBC (Bld) 21.0 % Normal 20.5-60.0 [facility] Comment on above: Performed By: #### G LU1HR #### [facility] [address] [place] [address] Dr. Rodrigo Mendez MANUAL DIFF REQ NO Normal [facility] Comment on above: Performed By: #### G LU1HR #### [facility] [address] [place] [address] Dr. Rodrigo Mendez MCH (RBC) [Entitic mass] 28.6 pg Normal 26.7-34.0 [facility] Comment on above: Performed By: #### G LU1HR #### [facility] [address] [address] [address] Rodrigo Mendez MCHC (RBC) [Mass/Vol] 33.5 g/dL Normal 29.9-35.2 [facility] Comment on above: Performed By: #### G LU1HR #### [facility] [address] [place] [address] Dr. Rodrigo Mendez MCV (RBC) [Entitic vol] 85.4 fL Normal 81.0-99.0 [facility] Comment on above: Performed By: #### G LU1HR #### [facility] [address] [place] [address] Dr. Rodrigo Mendez MONO # 0.8 103/ul Normal 0.3-0.8 [facility] Comment on above: Performed By: #### G LU1HR #### [facility] [address] [place] [address] Dr. Rodrigo Mendez Monocytes/100 WBC (Bld) 7.2 % Normal 1.7-12.0 [facility] Comment on above: Performed By: #### G LU1HR #### [facility] [address] [place] [address] Dr. Rodrigo Mendez NEUT # 7.9 103/ul Critically high 1.4-6.5 [facility] Comment on above: Performed By: #### G LU1HR #### [facility] [address] [place] [address] Dr. Rodrigo Mendez Neutrophils/100 WBC (Bld) 70.8 % Normal 43.0-75.0 [facility] Comment on above: Performed By: #### G LU1HR #### [facility] [address] [place] [address] Dr. Rodrigo Mendez Platelet mean volume (Bld) [Entitic vol] 12.4 fL Normal 9.5-13.5 [facility] Comment on above: Performed By: #### G LU1HR #### [facility] [address] [place] [address] Dr. Rodrigo Mendez PLT 175 103/ul Normal 150-450 [facility] Comment on above: Performed By: #### G LU1HR #### [facility] [address] [address] [address] Rodrigo Menedz RBC 4.05 106/ul Critically low 4.20-5.40 [facility] Comment on above: Performed By: #### G LU1HR #### [facility] [address] [address] [address] Rodrigo Mendez WBC 11.2 103/ul Critically high 4.0-11.0 [facility] Comment on above: Performed By: #### G LU1HR #### [facility] [address] [address] [address] Rodrigo Mendez Covid-19 PCR (CVDTB)on SARS-CoV-2 (COVID-19) RNA SIRI+probe Ql (Unsp spec) Not detected Normal NOT DETECTED [facility] Comment on above: Result Comment: When [...] for this test is supported by the [place] of Health and Human Service's declaration that [...] used). Performed By: #### C VDTBH #### [facility] [address] [place] [address] Dr. Rodrigo Mendez TYPE AND SCREENon 01-12-2022 TYPE AND SCREEN Negative Normal [facility] Comment on above: Performed By: #### G LU1HR #### [facility] [address] [place] [address] Dr. Rodrigo Mendez DRUG SCREEN RAPID (URINE)on 01-11-2022 AMP Negative Normal NEGATIVE [facility] Comment on above: Performed By: #### D RUGRPD #### [facility] [address] [place] [address] Dr. Rodrigo Mendez BAR Negative Normal NEGATIVE [facility] Comment on above: Performed By: #### D RUGRPD #### [facility] [address] [place] [address] Dr. Rodrigo Mendez BUP Negative Normal NEGATIVE [facility] Comment on above: Performed By: #### D RUGRPD #### [facility] [address] [place] [address] Dr. Rodrigo Mendez BZO Negative Normal NEGATIVE [facility] Comment on above: Performed By: #### D RUGRPD #### [facility] [address] [place] [address] Dr. Rodrigo Mendez RACHEL Negative Normal NEGATIVE [facility] Comment on above: Performed By: #### D RUGRPD #### [facility] [address] [place] [address] Dr. Rodrigo Mendez CUT-OFFS SEE BELOW Normal [facility] Comment on above: Result Comment: AMP [...] ng/mL Performed By: #### D RUGRPD #### [facility] [address] [place] [address] Dr. Rodrigo Mendez DRUG CUT HEADER DRUG CLASS TEST SYSTEM CUT-OFF CONCENTRATIONS ARE FOLLOWS: Normal [facility] Comment on above: Performed By: #### D RUGRPD #### [facility] [address] [address] [address] Rodrigo Mendez mAMP Negative Normal NEGATIVE [facility] Comment on above: Performed By: #### D RUGRPD #### [facility] [address] [address] [address] Rodrigo Mendez MTD Negative Normal NEGATIVE [facility] Comment on above: Performed By: #### D RUGRPD #### [facility] [address] [address] [address] Rodrigo Mendez OPI Negative Normal NEGATIVE [facility] Comment on above: Performed By: #### D RUGRPD #### [facility] [address] [place] [address] Dr. Rodrigo Mendez OXY Negative Normal NEGATIVE [facility] Comment on above: Performed By: #### D RUGRPD #### [facility] [address] [place] [address] Dr. Rodrigo Mendez PCP Negative Normal NEGATIVE [facility] Comment on above: Performed By: #### D RUGRPD #### [facility] [address] [place] [address] Dr. Rodrigo Mendez PPX Negative Normal NEGATIVE [facility] Comment on above: Performed By: #### D RUGRPD #### [facility] [address] [place] [address] Dr. Rodrigo Mendez TCA Negative Normal NEGATIVE [facility] Comment on above: Performed By: #### D RUGRPD #### [facility] [address] [place] [address] Dr. Rodrigo Mendez THC Negative Normal NEGATIVE [facility] Comment on above: Performed By: #### D RUGRPD #### [facility] [address] [place] [address] Dr. Rodrigo Mendez CHLAMYDIA/GONOCOCCUS SIRI (SW AB/URINE/PAPon 12-23-2021 Chlamydia trachomatis, SIRI Negative Normal Negative [facility] Comment on above: Performed By: #### C T/NGNA #### [facility] [address] [place] [address] Dr. Rodrigo Mendez Neisseria gonorrhoeae, SIRI Negative Normal Negative [facility] Comment on above: Performed By: #### C T/NGNA #### [facility] [address] [place] [address] Dr. Rodrigo Mendez GROUP B STREP CULTUREon 12-06 S. agalactiae Ag Ql (Unsp spec) Culture Observations: NEGATIVE FOR GROUP B STREPTOCOCCUS. Normal [facility] Comment on above: Performed By: #### G LU1HR #### [facility] [address] [place] [address] Dr. Rodrigo Mendez GTT 3 HR PREGon 11-04-2021 Glucose [Mass/Vol] 86 mg/dL Normal 74-106 [facility] Comment on above: Performed By: #### G TT3P #### [facility] [address] [place] [address] Dr. Rodrigo Mendez Glucose [Mass/Vol] 162 mg/dL Normal [facility] Comment on above: Performed By: #### G TT3P #### [facility] [address] [place] [address] Dr. Rodrigo Mendez Glucose [Mass/Vol] 148 mg/dL Normal [facility] Comment on above: Performed By: #### G TT3P #### [facility] [address] [place] [address] Dr. Rodrigo Mendez Glucose [Mass/Vol] 130 mg/dL Normal [facility] Comment on above: Performed By: #### G TT3P #### [facility] [address] [place] [address] Dr. Rodrigo Mendez GLUCOSE - 1HRon 10-31-2021 Glucose [Mass/Vol] 144 mg/dL Critically high 74-106 [facility] Comment on above: Performed By: #### G LU1HR #### [facility] [address] [place] [address] Dr. Rodrigo Mendez HEMOGRAM AND PLATELon 2021 Hematocrit (Bld) [Volume fraction] 36.4 % Normal 36.0-48.0 [facility] Comment on above: Performed By: #### H H #### [facility] [address] [address] [address] Rodrigo Mendez Hemoglobin (Bld) [Mass/Vol] 11.8 g/dL Critically low 12.0-16.0 [facility] Comment on above: Performed By: #### H H #### [facility] [address] [address] [address] Rodrigo Mendez MCH (RBC) [Entitic mass] 29.1 pg Normal 26.7-34.0 [facility] Comment on above: Performed By: #### H H #### [facility] [address] [address] [address] Rodrigo Mendez MCHC (RBC) [Mass/Vol] 32.4 g/dL Normal 29.9-35.2 [facility] Comment on above: Performed By: #### H H #### [facility] [address] [place] [address] Dr. Rodrigo Mendez MCV (RBC) [Entitic vol] 89.9 fL Normal 81.0-99.0 [facility] Comment on above: Performed By: #### H H #### [facility] [address] [address] [address] Rodrigo Mendez PLT 205 103/ul Normal 150-450 [facility] Comment on above: Performed By: #### H H #### [facility] [address] [place] [address] Dr. Rodrigo Mendez RBC 4.05 106/ul Critically low 4.20-5.40 [facility] Comment on above: Performed By: #### H H #### [facility] [address] [place] [address] Dr. Rodrigo Mendez WBC 10.3 103/ul Normal 4.0-11.0 [facility] Comment on above: Performed By: #### H H #### [facility] [address] [place] [address] Dr. Rodrigo Mendez Encounters Encounter Date Encounter Type Care Provider Facility Start: 03-19-2024 End: 03-19-2024 ambulatory OREN VALDEZ Not Available Start: 03-16-2024 End: 03-16-2024 ambulatory DALJIT BRADENPATRICK Not Available Start: 02-20-2024 End: 02-20-2024 ambulatory OREN VALDEZ Not Available Start: 12-24-2023 End: 12-24-2023 ambulatory SHAIKH CRISTINOJIMBO Not Available Start: 10-30-2023 End: 10-30-2023 ambulatory SHAIKH CRISTINOJIMBO Not Available Start: 07-18-2023 End: 07-18-2023 ambulatory NARENDRA JONES Not Available Start: 06-13-2023 End: 06-13-2023 ambulatory NARENDRA JORGENSENEY Not Available Start: 09-24-2022 End: 09-24-2022 ambulatory SHAIKH Anjali GREGGJIMBO Facility:[facility] Start: 09-13-2022 Encounter for other preprocedural examination KELLEY EDUARDO [facility] Start: 09-11-2022 End: 09-12-[address] YASH MONTGOMERY . Facility:[facility] Start: 09-11-2022 End: 09-12-2022 Encounter for other preprocedural examination DR YASH MONTGOMERY . Facility:[facility] Start: 05-29-2022 End: 05-29-2022 ambulatory GRINDING WHEEL INSPECTOR MATILDE MELINA Facility:[facility] Start: 05-09-2022 End: 05-09-2022 [...] EDUARDO Payers Date Payer Category Payer Unknown [id number] 2.16.84 [id number] 1997 Unknown [id number] 2.16.84 [id number] 1997 Unknown [id number] 2.16.84 [id number] 1997 Unknown [id number] 2.16.84 [id number] 1997 Unknown [id number] 2.16.84 [id number] 1997 Unknown [id number] 2.16.84 [id number] 1997 Unknown [id number] 2.16.84 0.1.328424.3.579.2.593 1997 Unknown [id number] 2.16.84 [id number] 1997 Unknown [id number] 2.16.84 [id number] 1997 Unknown [id number] 2.16.84 0.1.944838.3.579.2.1259 1997 Unknown [id number] 2.16.84 0.1.607173.3.579.2.1259 1997 Unknown [id number] 2.16.84 0.1.632920.3.579.2.1259 1997 Unknown [id number] 2.16.84 0.1.976566.3.579.2.1259 1997 Unknown [id number] 2.16.84 0.1.004278.3.579.2.1259 1997 Unknown [id number] 2.16.84 0.1.942821.3.579.2.1259 1997 Unknown [id number] 2.16.840 .1.710974.3.579.2.1259 1959 Unknown [id number] Summary Purpose Family History No Family History Records FoundNo Family History Records Found Advance Directives No Advanced Directives Records FoundNo Advanced Directives Records Found Additional Source Comments INFORMATION SOURCE (unrecogn ized section and content) DATE CREATED AUTHOR 10/05/2022 [facility] DATE CREATED AUTHOR AUTHOR'S DANNY MATHIS 03/21/2024 [facility] [facility] [place] [facility] EPIC FOR RECORDS PERTAINING TO [...] BE BASED ON THE PRIMARY CLINICAL RECORDS. [facility]. provides no warranty or guarantee of the accuracy or completeness of information in this document.
[2024-04-07 17:16] LABS: Estimated Average Glucose 97 mg/dL
[2024-04-07 17:40] LABS: Free T3 2.92 pg/mL (2.18-3.98); Glucose 93 mg/dL (74-106); Thyroid Stimulating Hormone 0.926 uIU/mL (0.358-3.740)
[2024-04-07 18:59] LABS: Free T4 0.77 ng/dL (0.76-1.46)
[2024-04-09 04:12] LABS: Estradiol 33.9 pg/mL (.); Progesterone 0.1 ng/mL (.); Prolactin 14.1 ng/mL (4.8-33.4); Sex Horm Binding Glob, Serum 30.2 nmol/L (24.6-122.0)
[2024-04-09 08:14] LABS: C-Peptide, Serum 4.3 ng/mL (1.1-4.4); Insulin 22.5 uIU/mL (2.6-24.9)
[2024-04-09 16:11] LABS: Thyroglobulin Antibody <1.0 IU/mL (0.0-0.9); Thyroid Peroxidase (TPO) Ab <9 IU/mL (0-34)
[2024-04-10 12:10] LABS: Calcitriol(1,25 di-OH Vit D) 54.6 pg/mL (24.8-81.5)
[2024-04-11 17:09] LABS: Serotonin, Serum 90 ng/mL (31-207)
[2024-04-13 16:10] LABS: Reverse T3, Serum 14.9 ng/dL (9.2-24.1)
[2024-04-14 03:07] LABS: Testosterone 10 ng/dL (13-71)
== END 2024-04-07 16:23 | disposition home or self-care (01) ==
LOC: LAB 16:23
PROVIDERS: Visit Provider Physician Assistant
DX: E34.9 Endocrine disorder, unspecified (principal)
CPT/HCPCS: 36415; 82533; 82627; 82652; 82670; 82679; 82728; 82947; 83036; 83525; 84144; 84146; 84260; 84270; 84402; 84403; 84432; 84436; 84439; 84443; 84481; 84482; 84681; 86376; 86800

== ENCOUNTER 2024-04-09 12:58 | Outpatient (OUT) | payer OTHER, SELFPAY ==
--- NOTE | 2024-04-09 | MM_ITS ---
Patient Name: DARLEEN HINTON MR#: [id number] : 1995 Exam Date: 04/09/2024 Ordering Doctor: FARZANEH Doan . RADIOLOGY REPORT PROCEDURE: MM TOMOSYNTHESIS DIAGNOSTIC BI, 04/09/2024, 14:12 US BREAST LT COMPLETE, 04/09/2024, 13:04 COMPARISON: None. INDICATIONS: PAINFUL LEFT BREAST Calculator Name NCI Breast Cancer Risk Assessment Tool 5 Year Breast Cancer Risk Not Reported. Lifetime Breast Cancer Risk Not Reported. Personal Breast Cancer No Personal Ovarian Cancer No Treatments None Family Cancers None LOCATION: [facility] BREAST COMPOSITION: There are scattered areas of fibroglandular density. FINDINGS: DIAGNOSTIC CATEGORY 2--BENIGN FINDING: Scattered benign-appearing lymph nodes are present. RIGHT BREAST: No significant suspicious finding. LEFT BREAST: No significant suspicious finding. Ultrasound demonstrates a 7 mm hyperechogenic lesion in the left axilla, I favor a lymph node. RECOMMENDATIONS: No mammographic or ultrasound abnormality. Further evaluation should be based on clinical and physical exam. PLEASE NOTE: A NORMAL MAMMOGRAM DOES NOT EXCLUDE THE POSSIBILITY OF BREAST CANCER. A CLINICALLY SUSPICIOUS PALPABLE LUMP SHOULD BE BIOPSIED. Dictated by: Davis Martino MD on 04/09/2024 at 15:11 Approved by: Davis Martino MD on 04/09/2024 at 15:25
--- NOTE | 2024-04-09 13:00 | US_ITS ---
Patient Name: DARLEEN HINTON MR#: [id number] : 1995 Exam Date: 04/09/2024 Ordering Doctor: FARZANEH Doan . RADIOLOGY REPORT PROCEDURE: MM TOMOSYNTHESIS DIAGNOSTIC BI, 04/09/2024, 14:12 US BREAST LT COMPLETE, 04/09/2024, 13:04 COMPARISON: None. INDICATIONS: PAINFUL LEFT BREAST Calculator Name NCI Breast Cancer Risk Assessment Tool 5 Year Breast Cancer Risk Not Reported. Lifetime Breast Cancer Risk Not Reported. Personal Breast Cancer No Personal Ovarian Cancer No Treatments None Family Cancers None LOCATION: [facility] BREAST COMPOSITION: There are scattered areas of fibroglandular density. FINDINGS: DIAGNOSTIC CATEGORY 2--BENIGN FINDING: Scattered benign-appearing lymph nodes are present. RIGHT BREAST: No significant suspicious finding. LEFT BREAST: No significant suspicious finding. Ultrasound demonstrates a 7 mm hyperechogenic lesion in the left axilla, I favor a lymph node. RECOMMENDATIONS: No mammographic or ultrasound abnormality. Further evaluation should be based on clinical and physical exam. PLEASE NOTE: A NORMAL MAMMOGRAM DOES NOT EXCLUDE THE POSSIBILITY OF BREAST CANCER. A CLINICALLY SUSPICIOUS PALPABLE LUMP SHOULD BE BIOPSIED. Dictated by: Davis Martino MD on 04/09/2024 at 15:11 Approved by: Davis Martino MD on 04/09/2024 at 15:25
--- OUTSIDE RECORDS SUMMARY | 2024-04-09 13:08 | XMS_ITS | CCD ---
Author Organization [facility] Care Team Providers Care Ready Mix Truck Driver Name Role Phone KELLEY EDUARDO Attending Unavailable [...] KELLEY Attending Unavailable KARASIK, KELLEY Admitting Unavailable FAWWASHAIKH [facility] Unavailable KARASIK, KELLEY Attending Unavailable KARASIK, KELLEY Consulting Unavailable KARASIK, KELLEY Admitting Unavailable OK II, UZAIR Consulting Unavailable FILUTZE, MARCO Consulting Unavailable REQUEST, NONE LISTED Primary Care Unavaila ble KARASIK, KELLEY Attending Unavailable KARASIK, KELLEY Admitting Unavailable AICHHOLZ, ORACLE OBIEE DEVELOPER MATILDE Admitting Unavailable REQUEST, NONE LISTED Primary Care Unavaila ble AICHHOLZ, ORACLE OBIEE DEVELOPER MATILDE Attending Unavailable AICHHOLZ, ORACLE OBIEE DEVELOPER MATILDE Consulting Unavailable KARASIK, KELLEY Attending Unavailable KARASIK, KELLEY Consulting Unavailable REQUEST, NONE LISTED Primary Care Unavaila ble KARASIK, KELLEY Admitting Unavailable NARENDRA JONES Attending Unavailable SHAIKH ALDANA Attending Unavailable NARENDRA JONES Attending Unavailable SHAIKH ALDANA Attending Unavailable OREN VALDEZ Attending Unavailable COPPOLA, DALJIT Attending UnavailOREN Stinson Attending Unavailable NARENDRA JONES Attending Unavailable Problems Active Problems Problem Classification [...] 09-24-2022 , QUAL Negative Normal NEGATIVE [facility] Comment on above: Performed By: #### P REGU #### [facility] [address] [place] [address] Dr. Rodrigo Mendez Covid-19 PCR ([employer])on 05-09 SARS-CoV-2 (COVID-19) RNA SIRI+probe Ql (Unsp spec) Detected Critically abnormal NOT DETECTED [facility] Comment on above: Result Comment: This test is not yet approved or cleared by the [place] FDA. When there are no FDA-approved or cleared tests available, and other criteria are met, FDA can make tests available under an emergency access mechanism called an Emergency Use Authorization (EUA). The EUA for this test is supported by the [employer] Health and Human Service's declaration that [...] used). Performed By: #### G LU1HR #### [facility] [address] [place] [address] Dr. Rodrigo Mendez PAP ACOG PANEL 2: 21 to 29on 05-17-2022 . . Normal [facility] Comment on above: Performed By: #### [id number] #### [facility] [address] [place] [address] Dr. Rodrigo Mendez Age Gdln ACOG Testing 23- [facility] Comment on above: Performed By: #### [id number] #### [facility] [address] [place] [address] Dr. Rodrigo Mendez DIAGNOSIS: Comment [facility] Comment on above: Result Comment: NEGA TIVE FOR INTRAEPITHELIAL LESION OR MALIGNANCY. Performed By: #### 4 [id number] #### [facility] [address] [place] [address] Dr. Rodrigo Mendez Methodology: Comment [facility] Comment on above: Result Comment: This liquid based ThinPrep(R) pap test was screened with the use of an image guided system. Performed By: #### 4 [id number] #### [facility] [address] [place] [address] Dr. Rodrigo Mendez Note: Comment [facility] Comment on above: Result Comment: The Pap smear is a screening test designed to aid in the detection of premalignant and malignant conditions of the uterine cervix. It is not a diagnostic procedure and should not be used as the sole means of detecting cervical cancer. Both false-positive and false-negative reports do occur. . Performed By: #### [id number] #### [facility] [address] [place] [address] Dr. Rodrigo Mendez Performed by: Comment Normal [facility] Comment on above: Result Comment: Debra Montelongo, Data Migration Lead (ASCP) Performed By: #### 4 [id number] #### [facility] [address] [place] [address] Dr. Rodrigo Mendez Reflex Criteria: Comment [facility] Comment on above: Result Comment: The HPV DNA reflex criteria were not met with this specimen result therefore, no HPV testing was performed. . Performed By: #### 4 [id number] #### [facility] [address] [place] [address] Dr. Rodrigo Mendez Specimen adequacy: Comment Normal [facility] Comment on above: Result Comment: Sati sfactory for evaluation. Endocervical and/or squamous metaplastic cells (endocervical component) are present. Performed By: #### 4 [id number] #### [facility] [address] [place] [address] Dr. Rodrigo Mendez VAGINITIS/VAGINOSIS DNA PROB Hussain 05-12-2022 Esther species Negative Normal Negative [facility] Comment on above: Performed By: #### V AGINT #### [facility] [address] [place] [address] Dr. Rodrigo Mendez Gardnerella vaginalis Negative Normal Negative [facility] Comment on above: Performed By: #### V AGINT #### [facility] [address] [place] [address] Dr. Rodrigo Mendez Trichomonas vaginalis Negative Normal Negative [facility] Comment on above: Performed By: #### V AGINT #### [facility] [address] [place] [address] Dr. Rodrigo Mendez CBC AUTO DIFFon 01-13-2022 BASO # 0.0 103/ul Normal 0.0-0.1 [facility] Comment on above: Performed By: #### C BC #### [facility] [address] [place] [address] Dr. Rodrigo Mendez Basophils/100 WBC (Bld) 0.4 % Normal 0.2-2.0 [facility] Comment on above: Performed By: #### C BC #### [facility] [address] [place] [address] Dr. Rodrigo Mendez EO # 0.1 103/ul Normal 0.0-0.7 [facility] Comment on above: Performed By: #### C BC #### [facility] [address] [place] [address] Dr. Rodrigo Mendez Eosinophils/100 WBC (Bld) 1.5 % Normal 0.9-7.0 [facility] Comment on above: Performed By: #### C BC #### [facility] [address] [place] [address] Dr. Rodrigo Mendez Erythrocyte distribution width (RBC) [Ratio] 13.6 % Normal 11.0-15.0 [facility] Comment on above: Performed By: #### C BC #### [facility] [address] [place] [address] Dr. Rodrigo Mendez Hematocrit (Bld) [Volume fraction] 33.6 % Critically low 36.0-48.0 [facility] Comment on above: Performed By: #### C BC #### [facility] [address] [place] [address] Dr. Rodrigo Mendez Hemoglobin (Bld) [Mass/Vol] 11.0 g/dL Critically low 12.0-16.0 [facility] Comment on above: Performed By: #### C BC #### [facility] [address] [place] [address] Dr. Rodrigo Mendez IG # 0.02 10e3/ul Normal 0.00-0.03 [facility] Comment on above: Performed By: #### C BC #### [facility] [address] [place] [address] Dr. Rodrigo Mendez IG % 0.2 % Normal 0.0-0.5 [facility] Comment on above: Performed By: #### C BC #### [facility] [address] [place] [address] Dr. Rodrigo Mendez LYMPH # 2.0 103/ul Normal 1.2-3.8 [facility] Comment on above: Performed By: #### C BC #### [facility] [address] [place] [address] Dr. Rodrigo Mendez Lymphocytes/100 WBC (Bld) 21.5 % Normal 20.5-60.0 [facility] Comment on above: Performed By: #### C BC #### [facility] [address] [place] [address] Dr. Rodrigo Mendez MANUAL DIFF REQ NO Normal [facility] Comment on above: Performed By: #### C BC #### [facility] [address] [place] [address] Dr. Rodrigo Mendez MCH (RBC) [Entitic mass] 28.9 pg Normal 26.7-34.0 [facility] Comment on above: Performed By: #### C BC #### [facility] [address] [place] [address] Dr. Rodrigo Mendez MCHC (RBC) [Mass/Vol] 32.7 g/dL Normal 29.9-35.2 [facility] Comment on above: Performed By: #### C BC #### [facility] [address] [place] [address] Dr. Rodrigo Mendez MCV (RBC) [Entitic vol] 88.4 fL Normal 81.0-99.0 [facility] Comment on above: Performed By: #### C BC #### [facility] [address] [place] [address] Dr. Rodrigo Mendez MONO # 0.8 103/ul Normal 0.3-0.8 [facility] Comment on above: Performed By: #### C BC #### [facility] [address] [place] [address] Dr. Rodrigo Mendez Monocytes/100 WBC (Bld) 8.4 % Normal 1.7-12.0 [facility] Comment on above: Performed By: #### C BC #### [facility] [address] [place] [address] Dr. Rodrigo Mendez NEUT # 6.2 103/ul Normal 1.4-6.5 [facility] Comment on above: Performed By: #### C BC #### [facility] [address] [place] [address] Dr. Rodrigo Mendez Neutrophils/100 WBC (Bld) 68.0 % Normal 43.0-75.0 [facility] Comment on above: Performed By: #### C BC #### [facility] [address] [place] [address] Dr. Rodrigo Mendez Platelet mean volume (Bld) [Entitic vol] 12.6 fL Normal 9.5-13.5 [facility] Comment on above: Performed By: #### C BC #### [facility] [address] [address] [address] Rodrigo Mendez PLT 142 103/ul Critically low 150-450 [facility] Comment on above: Performed By: #### C BC #### [facility] [address] [address] [address] Rodrigo Mendez RBC 3.80 106/ul Critically low 4.20-5.40 [facility] Comment on above: Performed By: #### C BC #### [facility] [address] [place] [address] Dr. Rodrigo Mendez WBC 9.1 103/ul Normal 4.0-11.0 [facility] Comment on above: Performed By: #### C BC #### [facility] [address] [place] [address] Dr. Rodrigo Mendez CBC AUTO DIFFon 01-12-2022 BASO # 0.0 103/ul Normal 0.0-0.1 [facility] Comment on above: Performed By: #### G LU1HR #### [facility] [address] [place] [address] Dr. Rodrigo Mendez Basophils/100 WBC (Bld) 0.2 % Normal 0.2-2.0 [facility] Comment on above: Performed By: #### G LU1HR #### [facility] [address] [place] [address] Dr. Rodrigo Mendez EO # 0.1 103/ul Normal 0.0-0.7 [facility] Comment on above: Performed By: #### G LU1HR #### [facility] [address] [place] [address] Dr. Rodrigo Mendez Eosinophils/100 WBC (Bld) 0.5 % Critically low 0.9-7.0 [facility] Comment on above: Performed By: #### G LU1HR #### [facility] [address] [place] [address] Dr. Rodrigo Mendez Erythrocyte distribution width (RBC) [Ratio] 13.2 % Normal 11.0-15.0 [facility] Comment on above: Performed By: #### G LU1HR #### [facility] [address] [place] [address] Dr. Rodrigo Mendez Hematocrit (Bld) [Volume fraction] 34.6 % Critically low 36.0-48.0 [facility] Comment on above: Performed By: #### G LU1HR #### [facility] [address] [place] [address] Dr. Rodrigo Mendez Hemoglobin (Bld) [Mass/Vol] 11.6 g/dL Critically low 12.0-16.0 [facility] Comment on above: Performed By: #### G LU1HR #### [facility] [address] [place] [address] Dr. Rodrigo Mendez IG # 0.03 10e3/ul Normal 0.00-0.03 [facility] Comment on above: Performed By: #### G LU1HR #### [facility] [address] [place] [address] Dr. Rodrigo Mendez IG % 0.3 % Normal 0.0-0.5 [facility] Comment on above: Performed By: #### G LU1HR #### [facility] [address] [place] [address] Dr. Rodrigo Mendez LYMPH # 2.4 103/ul Normal 1.2-3.8 [facility] Comment on above: Performed By: #### G LU1HR #### [facility] [address] [place] [address] Dr. Rodrigo Mendez Lymphocytes/100 WBC (Bld) 21.0 % Normal 20.5-60.0 [facility] Comment on above: Performed By: #### G LU1HR #### [facility] [address] [place] [address] Dr. Rodrigo Mendez MANUAL DIFF REQ NO Normal [facility] Comment on above: Performed By: #### G LU1HR #### [facility] [address] [place] [address] Dr. Rodrigo Mendez MCH (RBC) [Entitic mass] 28.6 pg Normal 26.7-34.0 [facility] Comment on above: Performed By: #### G LU1HR #### [facility] [address] [place] [address] Dr. Rodrigo Mendez MCHC (RBC) [Mass/Vol] 33.5 g/dL Normal 29.9-35.2 [facility] Comment on above: Performed By: #### G LU1HR #### [facility] [address] [place] [address] Dr. Rodrigo Mendez MCV (RBC) [Entitic vol] 85.4 fL Normal 81.0-99.0 [facility] Comment on above: Performed By: #### G LU1HR #### [facility] [address] [place] [address] Dr. Rodrigo Mendez MONO # 0.8 103/ul Normal 0.3-0.8 [facility] Comment on above: Performed By: #### G LU1HR #### [facility] [address] [place] [address] Dr. Rodrigo Mendez Monocytes/100 WBC (Bld) 7.2 % Normal 1.7-12.0 [facility] Comment on above: Performed By: #### G LU1HR #### [facility] [address] [place] [address] Dr. Rodrigo Mendez NEUT # 7.9 103/ul Critically high 1.4-6.5 [facility] Comment on above: Performed By: #### G LU1HR #### [facility] [address] [place] [address] Dr. Rodrigo Mendez Neutrophils/100 WBC (Bld) 70.8 % Normal 43.0-75.0 [facility] Comment on above: Performed By: #### G LU1HR #### [facility] [address] [place] [address] Dr. Rodrigo Mendez Platelet mean volume (Bld) [Entitic vol] 12.4 fL Normal 9.5-13.5 [facility] Comment on above: Performed By: #### G LU1HR #### [facility] [address] [place] [address] Dr. Rodrigo Mendez PLT 175 103/ul Normal 150-450 [facility] Comment on above: Performed By: #### G LU1HR #### [facility] [address] [address] [address] Rodrigo Mendez RBC 4.05 106/ul Critically low 4.20-5.40 [facility] Comment on above: Performed By: #### G LU1HR #### [facility] [address] [address] [address] Rodrigo Mendez WBC 11.2 103/ul Critically high 4.0-11.0 [facility] Comment on above: Performed By: #### G LU1HR #### [facility] [address] [place] [address] Dr. Rodrigo Mendez Covid-19 PCR (CVDTB)on SARS-CoV-2 (COVID-19) RNA SIRI+probe Ql (Unsp spec) Not detected Normal NOT DETECTED [facility] Comment on above: Result Comment: When diagnostic [...] for this test is supported by the [employer] Health and Human Service's declaration that [...] used). Performed By: #### C VDTBH #### [facility] [address] [place] [address] Dr. Rodrigo Mendez TYPE AND SCREENon 01-12-2022 TYPE AND SCREEN Negative Normal [facility] Comment on above: Performed By: #### G LU1HR #### [facility] [address] [place] [address] Dr. Rodrigo Mendez DRUG SCREEN RAPID (URINE)on 01-11-2022 AMP Negative Normal NEGATIVE [facility] Comment on above: Performed By: #### D RUGRPD #### [facility] [address] [place] [address] Dr. Rodrigo Mendez BAR Negative Normal NEGATIVE [facility] Comment on above: Performed By: #### D RUGRPD #### [facility] [address] [address] [address] Rodrigo Mendez BUP Negative Normal NEGATIVE [facility] Comment on above: Performed By: #### D RUGRPD #### [facility] [address] [place] [address] Dr. Rodrigo Mendez BZO Negative Normal NEGATIVE [facility] Comment on above: Performed By: #### D RUGRPD #### [facility] [address] [place] [address] Dr. Rodrigo Mendez RACHEL Negative Normal NEGATIVE [facility] Comment on above: Performed By: #### D RUGRPD #### [facility] [address] [place] [address] Dr. Rodrigo Mendez CUT-OFFS SEE BELOW Normal [facility] Comment on above: Result Comment: AMP [...] ng/mL Performed By: #### D RUGRPD #### [facility] [address] [place] [address] Dr. Rodrigo Mendez DRUG CUT HEADER DRUG CLASS TEST SYSTEM CUT-OFF CONCENTRATIONS ARE FOLLOWS: Normal [facility] Comment on above: Performed By: #### D RUGRPD #### [facility] [address] [place] [address] Dr. Rodrigo Mendez mAMP Negative Normal NEGATIVE [facility] Comment on above: Performed By: #### D RUGRPD #### [facility] [address] [place] [address] Dr. Rodrigo Mendez MTD Negative Normal NEGATIVE [facility] Comment on above: Performed By: #### D RUGRPD #### [facility] [address] [place] [address] Dr. Rodrigo Mendez OPI Negative Normal NEGATIVE [facility] Comment on above: Performed By: #### D RUGRPD #### [facility] [address] [place] [address] Dr. Rodrigo Mendez OXY Negative Normal NEGATIVE [facility] Comment on above: Performed By: #### D RUGRPD #### [facility] [address] [place] [address] Dr. Rodrigo Mendez PCP Negative Normal NEGATIVE [facility] Comment on above: Performed By: #### D RUGRPD #### [facility] [address] [place] [address] Dr. Rodrigo Mendez PPX Negative Normal NEGATIVE [facility] Comment on above: Performed By: #### D RUGRPD #### [facility] [address] [place] [address] Dr. Rodrigo Mendez TCA Negative Normal NEGATIVE [facility] Comment on above: Performed By: #### D RUGRPD #### [facility] [address] [place] [address] Dr. Rodrigo Mendez THC Negative Normal NEGATIVE [facility] Comment on above: Performed By: #### D RUGRPD #### [facility] [address] [place] [address] Dr. Rodrigo Mendez CHLAMYDIA/GONOCOCCUS SIRI (SW AB/URINE/PAPon 12-23-2021 Chlamydia trachomatis, SIRI Negative Normal Negative [facility] Comment on above: Performed By: #### C T/NGNA #### [facility] [address] [place] [address] Dr. Rodrigo Mendez Neisseria gonorrhoeae, SIRI Negative Normal Negative [facility] Comment on above: Performed By: #### C T/NGNA #### [facility] [address] [place] [address] Dr. Rodrigo Mendez GROUP B STREP CULTUREon 06 S. agalactiae Ag Ql (Unsp spec) Culture Observations: NEGATIVE FOR GROUP B STREPTOCOCCUS. Normal [facility] Comment on above: Performed By: #### G LU1HR #### [facility] [address] [place] [address] Dr. Rodrigo Mendez GTT 3 HR PREGon 11-04-2021 Glucose [Mass/Vol] 86 mg/dL Normal 74-106 [facility] Comment on above: Performed By: #### G TT3P #### [facility] [address] [place] [address] Dr. Rodrigo Mendez Glucose [Mass/Vol] 162 mg/dL Normal [facility] Comment on above: Performed By: #### G TT3P #### [facility] [address] [place] [address] Dr. Rodrigo Mendez Glucose [Mass/Vol] 148 mg/dL Normal [facility] Comment on above: Performed By: #### G TT3P #### [facility] [address] [place] [address] Dr. Rodrigo Mendez Glucose [Mass/Vol] 130 mg/dL Normal [facility] Comment on above: Performed By: #### G TT3P #### [facility] [address] [address] [address] Rodrigo Mendez GLUCOSE - 1HRon 10-31-2021 Glucose [Mass/Vol] 144 mg/dL Critically high 74-106 [facility] Comment on above: Performed By: #### G LU1HR #### [facility] [address] [place] [address] Dr. Rodrigo Mendez HEMOGRAM AND PLATELon 2021 Hematocrit (Bld) [Volume fraction] 36.4 % Normal 36.0-48.0 [facility] Comment on above: Performed By: #### H H #### [facility] [address] [address] [address] Rodrigo Mendez Hemoglobin (Bld) [Mass/Vol] 11.8 g/dL Critically low 12.0-16.0 [facility] Comment on above: Performed By: #### H H #### [facility] [address] [address] [address] Rodrigo Mendez MCH (RBC) [Entitic mass] 29.1 pg Normal 26.7-34.0 [facility] Comment on above: Performed By: #### H H #### [facility] [address] [place] [address] Dr. Rodrigo Mendez MCHC (RBC) [Mass/Vol] 32.4 g/dL Normal 29.9-35.2 [facility] Comment on above: Performed By: #### H H #### [facility] [address] [place] [address] Dr. Rodrigo Mendez MCV (RBC) [Entitic vol] 89.9 fL Normal 81.0-99.0 [facility] Comment on above: Performed By: #### H H #### [facility] [address] [address] [address] Rodrigo Mendez PLT 205 103/ul Normal 150-450 [facility] Comment on above: Performed By: #### H H #### [facility] [address] [place] [address] Dr. Rodrigo Mendez RBC 4.05 106/ul Critically low 4.20-5.40 [facility] Comment on above: Performed By: #### H H #### [facility] [address] [address] [address] Rodrigo Mendez WBC 10.3 103/ul Normal 4.0-11.0 [facility] Comment on above: Performed By: #### H H #### [facility] [address] [place] [address] Dr. Rodrigo Mendez Encounters Encounter Date Encounter Type Care Provider Facility Start: 04-06-2024 End: 04-06-2024 ambulatory NARENDRA JONES Not Available Start: 03-19-2024 End: 03-19-2024 ambulatory OREN VALDEZ Not Available Start: 03-16-2024 End: 03-16-2024 ambulatory DALJIT BRADENPATRICK Not Available Start: 02-20-2024 End: 02-20-2024 ambulatory OREN VALDEZ Not Available Start: 12-24-2023 End: 12-24-2023 ambulatory SHAIKH CRISTINOJIMBO Not Available Start: 10-30-2023 End: 10-30-2023 ambulatory SHAIKH CRISTINOJIMBO Not Available Start: 07-18-2023 End: 07-18-2023 ambulatory NARENDRA JONES Not Available Start: 06-13-2023 End: 06-13-2023 ambulatory NARENDRA JONES Not Available Start: 09-24-2022 End: 09-24-2022 ambulatory SHAIKH Anjali GREGGJIMBO Facility:[facility] Start: 09-13-2022 Encounter for other preprocedural examination KELLEY EDUARDO [facility] Start: 09-11-2022 End: 09-12-[address] YASH [facility] . Facility:[facility] Start: 09-11-2022 End: 09-12-2022 Encounter for other preprocedural examination DR YASH MONTGOMERY . Facility:[facility] Start: 05-29-2022 End: 05-29-2022 ambulatory JOSLYN SUMMERS Facility:[facility] Start: 05-09-2022 End: 05-09-2022 ambulatory KELLEY EDUARDO Facility:[facility] Start: 03-16-2022 End: 04-02-[address] GOLDBERG LISTED ELISEO Facility:[facility] Start: 01-12-2022 End: 01-13-2022 Evaluation and [...] EDUARDO Payers Date Payer Category Payer Unknown [id number] 2.16.84 [id number] 1997 Unknown [id number] 2.16.84 0.1.456779.3.579.2.593 1997 Unknown [id number] 2.16.84 0.1.350246.3.579.2.593 1997 Unknown [id number] 2.16.84 0.1.622713.3.579.2.593 1997 Unknown [id number] 2.16.84 0.1.951467.3.579.2.593 1997 Unknown [id number] 2.16.84 0.1.368113.3.579.2.593 1997 Unknown [id number] 2.16.84 0.1.644755.3.579.2.593 1997 Unknown [id number] 2.16.84 0.1.416548.3.579.2.593 1997 Unknown [id number] 2.16.84 0.1.705016.3.579.2.593 1997 Unknown [id number] 2.16.84 0.1.334162.3.579.2.1259 1997 Unknown [id number] 2.16.84 0.1.359913.3.579.2.1259 1997 Unknown [id number] 2.16.84 0.1.806910.3.579.2.1259 1997 Unknown [id number] 2.16.84 0.1.726791.3.579.2.1259 1997 Unknown [id number] 2.16.84 0.1.181636.3.579.2.1259 1997 Unknown [id number] 2.16.84 0.1.612352.3.579.2.1259 1997 Unknown [id number] 2.16.84 0.1.119423.3.579.2.1259 1997 Unknown [id number] 2.16.840 .1.981536.3.579.2.1259 1959 Unknown [id number] Summary Purpose Family History No Family History Records FoundNo Family History Records Found Advance Directives No Advanced Directives Records FoundNo Advanced Directives Records Found Additional Source Comments INFORMATION SOURCE (unrecogn ized section and content) DATE CREATED AUTHOR 10/05/2022 [facility] DATE CREATED AUTHOR AUTHOR'S ORGANIZ ATION 04/07/2024 [facility] EPIC FOR RECORDS PERTAINING TO [...] BE BASED ON THE PRIMARY CLINICAL RECORDS. [employer] [facility]. provides no warranty or guarantee of the accuracy or completeness of information in this document.
== END 2024-04-09 12:59 | disposition home or self-care (01) ==
LOC: US 12:58
PROVIDERS: Visit Provider Physician Assistant
DX: N64.4 Mastodynia (principal)
CPT/HCPCS: 76641; 77066; G0279

== ENCOUNTER 2024-07-06 13:55 | Emergency (ER) | payer OTHER, SELFPAY ==
[2024-07-06 14:14] VITALS: BP 122/80; PULSE 82; TEMP 36.9; O2SAT 99; BMI 31.9
[2024-07-06] MEDS: KETOROLAC TROMETHAMINE 30 MG/ML VIAL IM (15:01)
--- NOTE | 2024-07-06 15:31 | ED_ITS ---
HPI - Extremity Problem General Chief complaint: Extremity Problem, Nontraumatic Stated complaint: HIP PAIN Time Seen by Provider: 07/06/24 14:30 Source: patient Mode of arrival: walk-in Limitations: no limitations History of Present Illness HPI Narrative: 29-year-old female presents to the emergency department with complaint of right hip pain. Onset yesterday after waking getting out of bed. Locating pain to t he lateral aspect of her hip. Pain mainly worsening with walking, lifting the leg, certain movements. Does not appreciate tenderness on palpation. Notes radiation of the pain going down to her knee. Denies any specific injury, motor or sensory changes, paresthesias. Quality:?Sharp Severity:?Moderate Timing:?As above, intermittent Context: Normal setting and activity? Modifying factors:?As above Associated symptoms: None Related Data Previous Rx's ?Medication ?Instructions ?Recorded cyclobenzaprine 5 mg tablet 5 - 10 mg (1 - 2 x 5 mg) PO TID 07/06/24 PRN hip pain #14 tabs ibuprofen 600 mg tablet 600 mg PO Q8H PRN pain #20 tabs 07/06/24 Allergies Allergy/AdvReac Type Severity Reaction Status Date / Time No Known Drug Allergies Allergy Verified 05/23/23 11:28 Review of Systems ROS Narrative CONST: Denies activity change, weakness MS: + arthralgias.? Denies joint swelling, myalgias SKIN: Denies color change, wound NEURO: Denies numbness, paresthesias, weakness PFSH PFSH Medical History Anxiety ?F41.9 - Anxiety disorder, unspecified (ICD-10) COVID-19 ?U07.1 - COVID-19 (ICD-10) Asthma ?J45.909 - Unspecified asthma, uncomplicated (ICD-10) Ovarian cyst ?N83.209 - Unspecified ovarian cyst, unspecified side (ICD-10) Pelvic pain ?R10.2 - Pelvic and perineal pain (ICD-10) Abnormal uterine bleeding ?N93.9 - Abnormal uterine and vaginal bleeding, unspecified (ICD-10) Menorrhagia ?N92.0 - Excessive and frequent menstruation with regular cycle (ICD-10) Surgical History History of appendectomy ?Z90.49 - Acquired absence of other specified parts of digestive tract (ICD- 10) History of dilation and curettage ?Z98.890 - Other specified postprocedural states (ICD-10) History of laparoscopy ?Z98.890 - Other specified postprocedural states (ICD-10) History of bilateral salpingectomy ?Z90.79 - Acquired absence of other genital organ(s) (ICD-10) Family History Other Family history of breast cancer Family history of coronary artery disease Family history of diabetes mellitus Family history of heart disease Family history of hypertension Family history of leukemia Family history of myocardial infarction Family history of prostate cancer Family history of stroke Social History Within the past year, how often did you have a drink containing alcohol: monthly or less Smoking status: Former smoker Non-prescribed substance use: denies use Previous occupational history: Senior Case Manager Highest level of school completed/degree received: some college, no degree Little interest or pleasure in doing things: not at all Feeling down, depressed, or hopeless: not at all Exam Narrative Exam Narrative: Vital signs noted Nurses notes reviewed CONST: Nontoxic, well appearing, well nourished, in no distress.? HENT: normocephalic, atraumatic. CV: 2+ palpable right DP pulse MS: Right hip however, when she lifts/flexes the hip/leg, she has pain and tenderness over the hip flexor.? No tenderness to the knee, tib-fib, ankle, foot.? No swelling, ecchymosis, discoloration, crepitus, deformity, instability, warmth.? Active and Passive ROM is full with flexion, extension, rotation.? She does have some increased pain with passive internal and external rotation to note. Strength 5/5 NEURO: Sensory intact throughout and distal to the injury SKIN: intact, warm, dry.? No wound PSYCHIATRIC: normal mood, affect Constitutional Vital Signs, click to edit/add: Last Vital Signs Temp 98.5 F 07/06/24 14:14 Pulse 82 07/06/24 16:07 Resp 18 07/06/24 16:07 BP 114/72 07/06/24 16:07 Pulse Ox 98 07/06/24 16:07 O2 Del Method Room Air 07/06/24 16:07 Course Reevaluation(s) Reevaluation #1: Some improvement after treatment. Discussed with patient results, plan, and disposition. She is agreeable. Time: 16:15 Vital Signs Vital signs: Vital Signs Temperature 98.5 F 07/06/24 14:14 Pulse Rate 82 07/06/24 14:14 Respiratory Rate 18 07/06/24 14:14 Blood Pressure 122/80 07/06/24 14:14 Pulse Oximetry 99 07/06/24 14:14 Oxygen Delivery Method Room Air 07/06/24 14:14 Temperature 98.5 F 07/06/24 14:14 Pulse Rate 82 07/06/24 16:07 Respiratory Rate 18 07/06/24 16:07 Blood Pressure 114/72 07/06/24 16:07 Pulse Oximetry 98 07/06/24 16:07 Oxygen Delivery Method Room Air 07/06/24 16:07 MDM - Extremity (Nontraumatic) MDM Narrative Medical decision making narrative: This is a pleasant 29-year-old female who presented to the emergency department with chief complaint of right hip pain. Notes that when she got out of bed yesterday morning. Pain mainly worsens with certain movements, ambulating. On arrival, afebrile, vital signs stable. On exam, nontoxic, well appearing patient, in no apparent distress. Evaluation of her hip, she has acute tenderness with flexing the hip and palpable tenderness while the hip is flexed over the hip flexor region. Range of motion is full. Neurovascularly intact. Right hip x-ray imaging, per radiology performed which, per report shows no acute findings Favor right hip strain Fracture, dislocation less likely based on imaging History and Record Review Additional records reviewed: No prior records Management Independent interpretation: No fracture, dislocation, or other acute findings Re-Evaluation: See ED Course Disposition ? The patient was discharged. Prescriptions sent to pharmacy: Motrin, Flexeril Plan: Patient will be discharged to home. Condition at time of disposition: stable, improved. ? Advised to follow up with referral provider, name and number placed on discharge paperwork. Advised to return for any worsening and/or development of new, concerning signs or symptoms PLEASE NOTE: Portions of the medical record may have been produced using electronic airplane refueler and may contain errors with respect to translation of words which may not have been identified prior to finalization of the chart. Medical Records Attestation: I reviewed the patient's medical records. Imaging Data Right hip: Radiologist's impression: ITS Impressions Hip/Pelvis X-Ray 07/06/24 15:37 IMPRESSION: 1. No acute bone abnormality or significant degenerative joint disease. Electronically authenticated by: KIMO DUFFY Date: 07/06/2024 15:46 Discharge Plan Discharge Chief Complaint: Extremity Problem, Nontraumatic Clinical Impression: Acute pain of right hip Strain of right hip Qualifiers: Encounter type: initial encounter Qualified Code(s): S76.011A - Strain of muscle, fascia and tendon of right hip, initial encounter Patient Disposition: Home, Self-Care Time of Disposition Decision: 16:15 Condition: Good Mode of Transportation: Private Vehicle Prescriptions / Home Meds: New ibuprofen 600 mg tablet 600 mg PO Q8H PRN (Reason: pain) Qty: 20 0RF cyclobenzaprine 5 mg tablet 5 - 10 mg PO TID PRN (Reason: hip pain) Qty: 14 0RF Print Language: Urdu Instructions: Hip Pain (ED) Referrals: Kimo Cummins MD [Physician] - 1 week Discharge Date/Time: 07/06/24 16:23
--- NOTE | 2024-07-06 15:37 | XR_ITS ---
The [address] [address] Patient Name: DARLEEN HINTON MRN: [id number] date: 1995 Sex: F Assigned Patient Location: ER Current Patient Location: ER Accession/Order Number: [id number] Exam Date: 07/06/2024 15:30 Report Date: 07/06/2024 15:46 At the request of: ZACHARIAH MCNEIL Procedure: XR hip RT 2V w/ pelvis PROCEDURE: XR hip RT 2V w/ pelvis HISTORY: pain ; acute right hip pain COMPARISON: None. FINDINGS: BONES:No fracture, acute abnormality, or significant arthropathy. SOFT TISSUES:No visible soft tissue swelling. EFFUSION:None visible. OTHER: Negative. XR/XR hip RT 2V w/ pelvis IMPRESSION: 1. No acute bone abnormality or significant degenerative joint disease. Electronically authenticated by: KIMO DUFFY Date: 07/06/2024 15:46
[2024-07-06 16:07] VITALS: BP 114/72; PULSE 82; O2SAT 98
== END 2024-07-06 16:23 | disposition home or self-care (01) ==
PROVIDERS: Emergency Provider Emergency Medicine
DX: M25.551 Pain in right hip (principal); Z87.891 Personal history of nicotine dependence; Z90.49 Acquired absence of other specified parts of digestive tract
CPT/HCPCS: 73502; 96372; 99284; J1885

== ENCOUNTER 2024-07-27 16:24 | Outpatient (RCR) | payer OTHER, SELFPAY | END 2024-08-04 13:23 | disposition home or self-care (01) | LOC: PT 16:24 | PROVIDERS: Visit Provider Orthopaedic Surgery | DX: M25.851 Other specified joint disorders, right hip (principal) | CPT/HCPCS: 97110; 97112; 97161 ==